=== PATIENT | male | born 1980 | race Caucasian/White ===

== ENCOUNTER 2017-11-14 17:43 | Emergency (ER) | payer SELFPAY ==
[2017-11-14 17:55] VITALS: BP 120/70
[2017-11-14] MEDS ORDERED: NACL 0.9% IR ONE (18:20)
[2017-11-14] MEDS ORDERED: XYLOCAINE 2% INFILTRATI ONE (18:21)
--- NOTE | 2017-11-14 18:22 | Event Note ---
Date: 11/14/17 Medical screening examination: 37-year-old male presents with superficial forehead laceration in a work-related incident. No other issues or complaints. Neurologically intact. Suitable for my care at this time, needs a tetanus vaccination, laceration will be repaired. Vital Signs 11/14/17 17:53 Temperature 98.9 F Pulse Rate 73 Respiratory 16 Rate Blood Pressure 120/70 O2 Sat by Pulse 98 Oximetry
[2017-11-14] MEDS ORDERED: BOOSTRIX IM ONE (18:38)
[2017-11-14] MEDS ORDERED: NACL 0.9% 0 ML IR ONE (18:49)
--- NOTE | 2017-11-14 19:15 | Cat Scan Report ---
FINAL REPORT PROCEDURE: CT HEAD/BRAIN WO CON TECHNIQUE: Computerized tomography of the head was performed without contrast material. HISTORY: head trauma with power tool COMPARISON: No prior studies are available for comparison. FINDINGS: Brain: Brain density appears normal. No evidence of intracranial hemorrhage. No parenchymal hemorrhage, mass lesions or mass effect are seen. No abnormal extraxial fluid collects or masses are seen. Ventricles: Ventricles are normal size and are midline. Bone Windows: No evidence of skull fracture. Small scalp hematoma appears to be visualized overlying the right side of the forehead. No radiopaque foreign body is seen. Small bubble of gas is seen in the same location. There may be a small laceration or puncture wound at this site. Paranasal sinuses: Visualized portions appear clear. Mastoid air cells: Clear IMPRESSION: Small scalp hematoma right side of the forehead. No radiopaque foreign body is seen. Small bubble of gas is seen at the hematoma site. There may also be a small laceration this location. No other abnormality is identified. No evidence of intracranial hemorrhage or skull fracture.
--- NOTE | 2017-11-14 20:02 | Emergency Department Report ---
[place] [facility] Chief Complaint: Wound/Laceration Stated Complaint: HEAD INJURY Time Seen by Provider: 11/14/17 19:09 Occurred When: Today Severity: moderate Tetanus Status: Not up to Date Laceration Symptoms: Yes Pain, No Foreign Body Sensation, No Numbness, No Weakness Other History: 37-year-old male comes in for a small laceration to his forehead. Patient report while he was at work he hit his head on a machine proximal one prior prior to coming in which reports about 5 PM. Patient complains of a headache. He denies any nausea vomiting no change in vision no fever no chills. He has no past medical history currently takes no medications and has no known drug allergies. ED Review of Systems ROS: Stated complaint: HEAD INJURY Other details as noted in HPI ED Past Medical Hx - Past Medical History Previous Medical History?: No - Surgical History Past Surgical History?: No - Social History Smoking Status: Never Smoker Substance Use Type: None - Medications Home Medications: Home Medications Medication Instructions Recorded Confirmed Last Taken Type Ibuprofen 600 mg PO Q8H PRN #30 tablet 11/14/17 Unknown Rx Laceration Physical Exam - Exam General: Vital signs noted. No distress. Alert and acting appropriately. neuro: Alert and oriented 3. EMOI, finger to nose intact, strengths 4 out of 5 , [id number] intact, Romberg negative, pronator drift negative cranial nerve II through XII intact. Head: Proximal and 0.5 cm laceration to the forehead right side. Bleeding is controlled. There appears to be some swelling and tenderness erythematous. Full range of motion. Cardiac: Regular rate and rhythm no murmurs appreciated no thrill. Resp: Clear to auscultation bilateral. Wound Length (cm): 1 Laceration Location: Head (forehead) Laceration Exam: No Foreign Body, No Exposed Tendon, Vessel, or Nerve, No Tendon Injury, No Normal Distal CMS ED Course Vital Signs 11/14/17 17:53 Temperature 98.9 F Pulse Rate 73 Respiratory 16 Rate Blood Pressure 120/70 O2 Sat by Pulse 98 Oximetry - Laceration /Wound Repair Right Head Wound Length (cm): 1 (.5cm) Wound's Depth, Shape: superficial Wound Explored: clean Irrigated w/ Saline (ccs): 30 Betadine Prep?: Yes Anesthesia: 1% Lidocaine Volume Anesthetic (ccs): 2 Wound Debrided: minimal Wound Repaired With: sutures Suture Size/Type: 5:0 Number of Sutures: 1 Sterile Dressing Applied?: Yes Progress: Patient tolerated procedure well. ED Medical Decision Making - Radiology Data Radiology results: report reviewed IMPRESSION: Small scalp hematoma right side of the forehead. No radiopaque foreign body is seen. Small bubble of gas is seen at the hematoma site. There may also be a small laceration this location. No other abnormality is identified. No evidence of intracranial hemorrhage or skull fracture. - Medical Decision Making Patient has been evaluated by this provider fast track as well as Dr. Tijerina. Patient's had a CT tetanus shot. Place ice and ibuprofen for pain. Patient has no neuro deficits. He only complains of a headache. This patient that we will need to put one suture in which patient tolerated well. Discussed the patient is to return in 5 days to have suture removed. Discussed the patient if there is any purulent discharge increased swelling and increased redness fever worst headache of his life to return back to the emergency room immediately. She verbalized understanding Critical care attestation.: If time is entered above; I have spent that time in minutes in the direct care of this critically ill patient, excluding procedure time. ED Disposition Clinical Impression: Laceration Disposition: [id number] TO HOME OR SELFCARE Is pt being admited?: No Does the pt Need Aspirin: No Condition: Stable Instructions: Laceration (ED), Suture Care (ED) Additional Instructions: If there is any purulent discharge increased swelling and increased redness fever worst headache of his life to return back to the emergency room immediately. Please change Band-Aid daily. Keep area clean and dry. These return in 5 days to have suture removed. Prescriptions: Ibuprofen 600 mg PO Q8H PRN #30 tablet PRN Reason: Pain Referrals: PRIMARY CARE, [Primary Care Provider] - 3-5 Days Forms: Work/School Release Form(ED) Print Language: SURINAMESE
== END 2017-11-14 20:19 | disposition home or self-care (01) ==
LOC: ED 17:43
DX: S01.81XA Laceration without foreign body of other part of head, initial encounter (principal); W26.0XXA Contact with knife, initial encounter; Y93.89 Activity, other specified; Y92.89 Other specified places as the place of occurrence of the external cause; Y99.8 Other external cause status
CPT/HCPCS: 70450; 90471; 90715; 99283